=== PATIENT | male | born 1940 | race Caucasian/White ===

== ENCOUNTER 2016-05-08 14:47 | Observation (INO) | payer MEDICARE, OTHER ==
[~2016-05-08] VITALS: Ht 177.8 cm; Wt 92.0 kg
[~2016-05-08 14:47] MED LIST: ADLT ASA LOW81 MG PO; CRESTOR5 MG PO; DILTIAZEM HCL60 MG PO; FLONASE0.05 %; GENTAMICIN0.3 % OP; HYDROCHLOROT12.5 MG PO; LISINOPRIL10 MG PO; METOPROL TAR25 MG PO; NITROSTAT0.4 MG SL; VERAPAMIL180 M1 PO; VITAMIN D2000 UNI1 OR
[2016-05-08 15:44] LABS: HEMATOCRIT 47.4 % (39.0-50.0); HEMOGLOBIN 15.6 g/dl (14.0-18.0); IMMATURE GRANULOCYTES 0.2 % (0.0-1.0); MEAN CELL VOLUME 89.6 fL CALC (80.0-100.0); MEAN CORPUSCULAR HGB 29.5 pG CALC (26.0-32.0); MEAN CORPUSCULAR HGB CONC 32.9 g/L CALC (32.0-36.0); NEUT# 4.51 thou/uL (1.82-7.42); RED BLOOD COUNT 5.29 mill/uL (4.70-6.10)
[2016-05-08 15:57] LABS: ALBUMIN 4.5 g/dL (3.2-5.0); ALKALINE PHOSPHATASE 46 u/l (38-126); ANION GAP 16 (6-22 (CALC)); BILIRUBIN, TOTAL 0.7 mg/dL (0.0-1.4); BUN 13 mg/dL (8-23); BUN/CREATININE RATIO 16 (12-20 (CALC)); CALCIUM 8.8 mg/dL (8.4-10.2); CARBON DIOXIDE 25 mmol/l (22-30); CHLORIDE 106 mmol/l (95-108); CREATININE 0.8 mg/dL (0.7-1.3); GFR > 60 ML/MIN (>=60 (CALC)); GFR FOR AFR.AMER. > 60 ML/MIN (>=60 (CALC)); GLUCOSE 126 mg/dL (82-115); POTASSIUM 4.3 mmol/l (3.5-5.1); SGOT/AST 28 u/l (19-48); SGPT/ALT 27 u/l (11-66); SODIUM 143 mmol/l (137-146); TOTAL PROTEIN 7.9 g/dL (6.3-8.2)
[2016-05-08 15:59] LABS: PROTHROMBIN TIME 22.9 SECONDS (9.0-12.5)
[2016-05-08 16:08] LABS: MYOGLOBIN 36 ng/mL (0 - 121)
[2016-05-08] MEDS ORDERED: WARFARIN5 MG PO (18:08)
[2016-05-08] MEDS ORDERED: WARFARIN2.5 MG PO (18:09)
[2016-05-08] MEDS ORDERED: METOPROL TAR25 MG PO (18:09)
[2016-05-08] MEDS ORDERED: SIMVASTATIN20 MG PO (18:10)
[2016-05-08] MEDS ORDERED: ZESTRIL10 M1 PO (18:10)
[2016-05-08] MEDS ORDERED: VITAMIN D1000 UNI1 PO (18:11)
[2016-05-08] MEDS ORDERED: B-121000 MC1 PO (18:11)
[2016-05-08] MEDS ORDERED: SAW PALMETTO450 MG PO (18:12)
[2016-05-08 19:45] VITALS: BP 160/81
[2016-05-08 23:20] VITALS: BP 121/75
[2016-05-09 04:15] VITALS: BP 119/77
[2016-05-09 05:57] LABS: URINE BILIRUBIN - DIPSTICK NEGATIVE (NEGATIVE); URINE BLOOD DIPSTICK NEGATIVE (NEGATIVE); URINE CLARITY CLEAR; URINE COLOR YELLOW; URINE GLUCOSE - DIPSTICK NEGATIVE (NEGATIVE); URINE KETONE NEGATIVE (NEGATIVE); URINE LEUK ESTERASE NEGATIVE (NEGATIVE); URINE NITRITE - DIPSTICK NEGATIVE (Negative); URINE PROTEIN - DIPSTICK NEGATIVE (NEG-TRACE); URINE SPECIFIC GRAVITY 1.025; URINE UROBILINOGEN - DIPSTICK 0.2 E.U./dL (0.2)
[2016-05-09 05:57] LABS: HEMATOCRIT 43.9 % (39.0-50.0); HEMOGLOBIN 14.6 g/dl (14.0-18.0); IMMATURE GRANULOCYTES 0.5 % (0.0-1.0); MEAN CELL VOLUME 88.7 fL CALC (80.0-100.0); MEAN CORPUSCULAR HGB 29.5 pG CALC (26.0-32.0); MEAN CORPUSCULAR HGB CONC 33.3 g/L CALC (32.0-36.0); NEUT# 3.68 thou/uL (1.82-7.42); RED BLOOD COUNT 4.95 mill/uL (4.70-6.10); RED CELL DISTRI WIDTH 13.9 % (11.5-15.5)
[2016-05-09 06:08] LABS: INTERNATIONAL NORMALIZED RATIO 1.8 RATIO (0.7-1.3); PROTHROMBIN TIME 20.1 SECONDS (9.0-12.5)
[2016-05-09 06:10] LABS: ANION GAP 14 (6-22 (CALC)); BUN 16 mg/dL (8-23); BUN/CREATININE RATIO 18 (12-20 (CALC)); CALCIUM 8.7 mg/dL (8.4-10.2); CARBON DIOXIDE 26 mmol/l (22-30); CHLORIDE 106 mmol/l (95-108); CREATININE 0.9 mg/dL (0.7-1.3); GFR > 60 ML/MIN (>=60 (CALC)); GFR FOR AFR.AMER. > 60 ML/MIN (>=60 (CALC)); GLUCOSE 93 mg/dL (82-115); SODIUM 142 mmol/l (137-146)
[2016-05-09 08:40] VITALS: BP 120/66
[2016-05-09 12:21] VITALS: BP 122/81
[2016-05-09 15:00] VITALS: BP 121/77
[2016-05-09] MEDS ORDERED: ANTIVERT PO (16:47)
== END 2016-05-09 19:45 | disposition home or self-care (01) ==
LOC: ENPENDDIS → ED 14:47 → ED-I 16:21 → ED 16:21 → ED-I 17:05 → ED 17:36 → MS2 17:37
PROVIDERS: Emergency Medicine; ADMIT Internal Medicine; ATTEND Internal Medicine
DX: H81.10 Benign paroxysmal vertigo, unspecified ear (principal); I11.9 Hypertensive heart disease without heart failure; E04.9 Nontoxic goiter, unspecified; I25.10 Atherosclerotic heart disease of native coronary artery without angina pectoris; G47.33 Obstructive sleep apnea (adult) (pediatric); I65.23 Occlusion and stenosis of bilateral carotid arteries; E78.5 Hyperlipidemia, unspecified; G89.29 Other chronic pain; M54.9 Dorsalgia, unspecified; R11.0 Nausea; Z95.0 Presence of cardiac pacemaker; Z79.01 Long term (current) use of anticoagulants; Z86.73 Personal history of transient ischemic attack (TIA), and cerebral infarction without residual deficits; Z87.891 Personal history of nicotine dependence